=== PATIENT | male | born 1935 | race Caucasian/White ===

== ENCOUNTER 2016-11-15 12:01 | Observation (INO) ==
--- NOTE | 2016-11-15 12:31 | Emergency Department Note ---
Disposition Clinical Impression: JAD (acute kidney injury), Fracture, Anemia, Lactic acid acidosis, Nausea vomiting and diarrhea Disposition: Admitted As Inpatient Condition: Good Time of Disposition: 15:05 General Adult HPI - General Chief complaint: ED Nausea/Vomiting/Diarrhea Stated complaint: vomiting and ankle injury Time Seen by Provider: 11/15/16 12:16 Source: patient Limitations: no limitations Nursing Notes Reviewed: Yes Vital Signs Reviewed: Yes - History of Present Illness HPI Narrative: Palpation complaining of left lower extremity pain after stepping off a tractor and rolling his ankle. Also complaining of nausea vomiting diarrhea that began overnight. Subjective fevers as chills. Denies any abdominal pain. States that this has stopped around 4:00 this morning. Denies any hematochezia melena or hematemesis. Pain Scale: 5 - Related Data Home Medications Medication Instructions Recorded Confirmed Allopurinol [Zyloprim 100 MG] 100 mg PO DAILY 11/15/16 11/15/16 Aspirin 81 mg PO DAILY 11/15/16 11/15/16 Carvedilol 12.5 mg PO BID 11/15/16 11/15/16 Clopidogrel [Plavix] 75 mg PO DAILY 11/15/16 11/15/16 Furosemide [Lasix] 40 mg PO DAILY 11/15/16 11/15/16 Levothyroxine [Synthroid] [place] [address]/15/16 11/15/16 Losartan Potassium [Cozaar] 1 mg PO DAILY 11/15/16 11/15/16 Multivitamin [Multivitamins] 1 each PO DAILY 11/15/16 11/15/16 Omeprazole [PriLOSEC] 20 mg PO BIDAC 11/15/16 11/15/16 Pravastatin Sodium [Pravachol] 80 mg PO DAILY 11/15/16 11/15/16 Sertraline [Zoloft] 50 mg PO DAILY 11/15/16 11/15/16 amLODIPine [Norvasc] 10 mg PO DAILY 11/15/16 11/15/16 Allergies Allergy/AdvReac Type Severity Reaction Status Date / Time No Known Allergies Allergy Verified 11/15/16 12:15 All systems ED: reviewed and negative except as stated. Constitutional: Reports: chills. Denies: fever Cardiovascular: Denies: chest pain, palpitations, syncope Respiratory: Denies: cough, dyspnea, wheezes Gastrointestinal: Reports: nausea, vomiting, diarrhea. Denies: abdominal pain, hematemesis, melena, hematochezia Genitourinary: Denies: urgency, dysuria, frequency, hematuria Musculoskeletal: Denies: back pain, neck pain Integumentary: Denies: rash Neurological: Reports: weakness Past Medical History - Past Medical History Attestation: Yes The following information was validated with the patient. Source: patient Medical history: Reports: cancer, coronary artery disease, CVA, hypertension, myocardial infarction, other Psychiatric history: Reports: no psych history - Social History Smoking Status: Former smoker Smokeless Tobacco Status: No Alcohol use: Reports: none Drug use: Reports: none Physical Exam - General Limitations: no limitations General appearance: alert, in no apparent distress - Head Head exam: atraumatic, normocephalic, normal inspection - Eye Eye exam: Present: normal appearance, PERRL, EOMI - ENT ENT exam: normal exam, normal oropharynx, mucous membranes moist - Neck Neck exam: Present: normal inspection, full ROM, trachea midline - Chest Chest inspection: Present: normal inspection, symmetric chest wall rise - Respiratory Respiratory exam: Present: normal lung sounds bilaterally. Absent: respiratory distress - Cardiovascular Cardiovascular exam: Present: regular rate, normal rhythm, normal heart sounds - Abdominal Exam Abdominal exam: Present: soft, Non-Tender, normal bowel sounds, other (Does have palpable mesh in his upper abdomen.). Absent: tenderness, distention, guarding, rebound, rigidity, organomegaly, Canchola's sign, Rovsing's sign, tenderness at McBurney's Point - Extremities Exam Extremities exam: Present: normal inspection, full ROM, normal capillary refill. Absent: tenderness, pedal edema - Expanded Lower Extremity Exam Foot/toe exam: Present: other (Pain to palpation of dorsal medial aspect of left foot. No ecchymosis. Mild edema to medial malleolus) - Back Exam Back exam: Present: normal inspection, full ROM. Absent: tenderness - Neurological Exam Neurological exam: Present: alert, oriented X3 - Psychiatric Psychiatric exam: Present: normal affect, normal mood - Skin Skin exam: Present: warm, dry, intact, normal color Course Course Narrative: Male patient presenting to emergency department complaining of left ankle pain and overnight history of nausea vomiting diarrhea with associated chills. He states that one week ago he stepped off his tractor and rolled his left ankle. He has had pain in his ankle ever since. He has been ambulatory on it however it is still painful. He has used ice and heat help relieve the pain. Patient also complaining of nausea vomiting and diarrhea that started last night after he ate a frozen potpie. Patient states that he then began to vomit several times throughout the night. He denies any hematemesis. However He does have a history of peptic ulcer disease. Patient reports his diarrhea is watery and brown in color. He denies any hematochezia or melena. He states that both of these symptoms. This morning around 4:00. He denies any abdominal pain. States that he did have chills throughout the night and cannot get enough blankets on him however is unable to take his temperature due to his vomiting. At this time he is sitting in a chair at bedside with a blanket wrapped around him. He denies any nausea or vomiting at this time. He denies any abdominal pain. The only pain he can report is the pain in his left ankle. His ankle does have some mild edema to the medial aspect however there is no signs of ecchymosis there is no gross deformity. He has pinpoint tenderness over the dorsal medial aspect of his foot. We will get x-rays of his left ankle and foot in scan patient's abdomen. He is refusing nausea medication at this time. - Reevaluation(s) Reevaluation #1: Patient is anemic, has JAD and increase lactic acid as well as a small avulsion fracture to his left foot. We placed patient in a posterior tibial splint. This was placed by or tech. Pulses were strong prior to and after placement. This is a posterior formed splint held with an Serjio wrap. And will admit patient to hospital. We have given him 1 L of fluids. - Consultations Consultation #1: MILES Castañeda accepted patient in stable condition. Time: 14:06 Vital Signs Temperature 98.2 F 11/15/16 12:12 Pulse Rate 73 11/15/16 12:12 Respiratory Rate 16 11/15/16 12:12 Blood Pressure 111/51 11/15/16 12:12 O2 Sat by Pulse Oximetry 96 11/15/16 12:12 Temperature 98.5 F 11/15/16 19:23 Pulse Rate 68 11/15/16 19:23 Respiratory Rate 14 11/15/16 19:23 Blood Pressure 109/49 11/15/16 19:23 O2 Sat by Pulse Oximetry 94 11/15/16 19:23 Oxygen Delivery Oxygen Delivery Room Air Medical Decision Making - Medical Records Medical records reviewed: Yes I reviewed the patient's medical records. - Lab Data Lab results reviewed: Yes I reviewed the patient's lab results. Result diagrams: 11/15/16 12:43 11/15/16 12:43 Lab Results 11/15/16 11/15/16 11/15/16 Range/Units 12:43 12:43 12:43 WBC 11.0 (4.3-11.1) K/mcL RBC 2.86 L (4.19-5.50) M/mcL Hgb 9.4 L (12.9-16.9) g/dL Hct 27.6 L (37.5-50.1) % MCV 96.5 (83.0-100.0) fL MCH 32.9 (28.0-33.3) pg MCHC 34.1 (31.6-35.5) g/dL RDW 14.4 (11.5-14.5) % Plt Count 108 L (140-400) K/mcL MPV 9.7 (9.4-12.4) fL Immature Gran % 0.6 (0-4) % Seg Neutrophils % 89.9 % Lymphocytes % 5.2 % Monocytes % 4.0 % Eosinophils % 0.2 % Basophils % 0.1 % Neutrophils # 9.9 H (1.6-8.9) K/mcL Lymphocytes # 0.6 (0.6-4.6) K/mcL Monocytes # 0.4 (0.0-1.3) K/mcL Eosinophils # 0.0 (0.0-0.6) K/mcL Basophils # 0.0 (0.0-0.2) K/mcL Sodium 139 (136-145) mEq/L Potassium 4.2 (3.5-4.5) mEq/L Chloride 103 (98-109) mEq/L Carbon Dioxide 24 (19-29) mEq/L BUN 47 H (8-26) mg/dL Creatinine 2.08 H (0.72-1.25) mg/dL Est GFR ( Amer) 38 L (> 60) Est GFR (Non-Af Amer) 31 L (> 60) BUN/Creatinine Ratio 23 (6-26) Glucose 129 H (70-99) mg/dL Calculated Osmolality 302 H (280-300) Lactic Acid 2.5 H (0.5-2.2) mmol/L Calcium 8.2 L (8.6-10.8) mg/dL Total Bilirubin 0.3 (0.2-1.2) mg/dL AST 18 (5-34) Units/L ALT 7 (0-55) Units/L Alkaline Phosphatase 62 (38-126) Units/L Troponin I (0-0.03) ng/mL Serum Total Protein 5.7 L (6.0-8.3) g/dL Albumin 2.9 L (3.5-5.0) g/dL Globulin 2.8 (2.4-3.5) g/dL Albumin/Globulin Ratio 1.0 L (1.1-2.2) Lipase 17 (8-78) Units/L /09/26 Range/Units 12:43 WBC (4.3-11.1) K/mcL RBC (4.19-5.50) M/mcL Hgb (12.9-16.9) g/dL Hct (37.5-50.1) % MCV (83.0-100.0) fL MCH (28.0-33.3) pg MCHC (31.6-35.5) g/dL RDW (11.5-14.5) % Plt Count (140-400) K/mcL MPV (9.4-12.4) fL Immature Gran % (0-4) % Seg Neutrophils % % Lymphocytes % % Monocytes % % Eosinophils % % Basophils % % Neutrophils # (1.6-8.9) K/mcL Lymphocytes # (0.6-4.6) K/mcL Monocytes # (0.0-1.3) K/mcL Eosinophils # (0.0-0.6) K/mcL Basophils # (0.0-0.2) K/mcL Sodium (136-145) mEq/L Potassium (3.5-4.5) mEq/L Chloride (98-109) mEq/L Carbon Dioxide (19-29) mEq/L BUN (8-26) mg/dL Creatinine (0.72-1.25) mg/dL Est GFR ( Amer) (> 60) Est GFR (Non-Af Amer) (> 60) BUN/Creatinine Ratio (6-26) Glucose (70-99) mg/dL Calculated Osmolality (280-300) Lactic Acid (0.5-2.2) mmol/L Calcium (8.6-10.8) mg/dL Total Bilirubin (0.2-1.2) mg/dL AST (5-34) Units/L ALT (0-55) Units/L Alkaline Phosphatase (38-126) Units/L Troponin I 0.03 (0-0.03) ng/mL Serum Total Protein (6.0-8.3) g/dL Albumin (3.5-5.0) g/dL Globulin (2.4-3.5) g/dL Albumin/Globulin Ratio (1.1-2.2) Lipase (8-78) Units/L - Radiology Data Radiology results reviewed: Yes I reviewed the patient's radiology results. Ankle X-Ray 11/15/16 12:32 IMPRESSION: Left ankle: Tiny ossific fragment adjacent to the medial malleolus could represent avulsion injury. Overlying soft tissues are swollen. Left foot: No acute osseous abnormality. D/ / Gustavo Milton MD / Gustavo Milton MD Interpreting Provider: Gustavo Milton MD Foot X-Ray 11/15/16 12:32 IMPRESSION: Left ankle: Tiny ossific fragment adjacent to the medial malleolus could represent avulsion injury. Overlying soft tissues are swollen. Left foot: No acute osseous abnormality. D/ / Gustavo Milton MD / Gustavo Milton MD Interpreting Provider: Gustavo Milton MD Abdomen/Pelvis CT 11/15/16 12:35 IMPRESSION: 1. No acute intra-abdominal abnormality to account for the patient's symptoms. 2. Severe diverticulosis. 3. 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 Severe atherosclerosis. RECOMMENDATIONS: Managing Abdominal Aortic Aneurysms 3.5-3.9 cm: 1 year follow up. Reference: Osorio et al. The care of patients with an abdominal aortic aneurysm: The Society of Vascular Surgery practice guidelines. Journal of Vascular Surgery. Vol 50, Number 85. Hailey et al. Managing Incidental Findings on Abdominal and Pelvic CT and MRI, Part 2: White Paper of the ACR Incidental Findings Committee II on Vascular Findings. J Am Carloz Radiol 2013;10:789-794 D/ / 11/15/2016 13:06:38 Luciana Urena MD / rene Interpreting Provider: Luciana Urena MD - EKG Data EKG #1 EKG attestation: Yes I reviewed and interpreted this EKG. EKG results narrative: Normal sinus rhythm at a rate of 66. UT interval is 175. Respiration is 129. QT is 413. QTC is 427. No signs of acute ischemia. No significant change from previous EKG dated 04/21/2014. Attestation Statement - Attestation Attestation: I examined this patient and my medical decision-making was reviewed with the Resident Physician. I agree with the documented findings, disposition and treatment plan as described except to the extent set forth below. 81-year-old male presenting with concern for vomiting. Subsequently found have acute kidney injury, lactic acidosis. IV hydration initiated. CT scan shows no acute findings. We will proceed with admission to the hospital for IV hydration and further monitoring.
[2016-11-15 12:49] LABS: Basophils % 0.1 %; Eosinophils % 0.2 %; Hematocrit 27.6 % (37.5-50.1); Hemoglobin 9.4 g/dL (12.9-16.9); Immature Granulocytes % 0.6 % (0-4); Lymphocytes % 5.2 %; Mean Corpuscular HGB Conc 34.1 g/dL (31.6-35.5); Mean Corpuscular Hemoglobin 32.9 pg (28.0-33.3); Mean Corpuscular Volume 96.5 fL (83.0-100.0); Mean Platelet Volume 9.7 fL (9.4-12.4); Platelet Count 108 K/mcL (140-400); Red Blood Count 2.86 M/mcL (4.19-5.50); Red Cell Distribution Width 14.4 % (11.5-14.5); Segmented Neutrophils % 89.9 %
[2016-11-15 12:50] LABS: Lymphocytes # 0.6 K/mcL (0.6-4.6); Monocytes # 0.4 K/mcL (0.0-1.3); Neutrophils # 9.9 K/mcL (1.6-8.9)
[2016-11-15 13:04] LABS: Albumin 2.9 g/dL (3.5-5.0); Bilirubin,Total 0.3 mg/dL (0.2-1.2); Calcium 8.2 mg/dL (8.6-10.8); Globulin 2.8 g/dL (2.4-3.5); Potassium 4.2 mEq/L (3.5-4.5); Total Protein 5.7 g/dL (6.0-8.3)
[2016-11-15] MEDS ORDERED: 0.9 % Sodium Chloride 1,000 ML IVC ONE (13:38)
[2016-11-15] MEDS ORDERED: Ondansetron 4 MG/2 ML VIAL IVP PRN (18:12)
[2016-11-15] MEDS ORDERED: *HR* Morphine 2 MG/ML SYRINGE IVP PRN (18:12)
[2016-11-15] MEDS ORDERED: *HR* HYDROcodone/Acet 5/325 mg TABLET PO PRN (18:12)
[2016-11-15] MEDS ORDERED: Naloxone 0.4 MG/ML INJ IVP PRN (18:12)
[2016-11-15] MEDS ORDERED: Acetaminophen 325 MG TABLET PO PRN (18:12)
--- NOTE | 2016-11-15 18:23 | Event Note ---
Date of Encounter: 11/15/16 Time of Encounter: 18:23 1. Dehydration secondary to Acute gastroenteritis viral versus bacterial as a possible cause of lactic acidosis Continue IV fluids 2. Acute on chronic kidney disease, chronic kidney disease stage III, avoid nephrotoxic agents 3. Left ankle fracture/avulsion fracture , orthopedic surgery consulted 4. Chronic anemia, monitor CBC, no signs of bleeding 5.CAD status post stents, continue aspirin Omeprazole for GI prophylaxis and subcutaneous heparin for DVT prophylaxis. The patient will be admitted for observation. Full code. Time spent on this admission 40 minutes.
--- NOTE | 2016-11-15 18:42 | Internal Med History&Physical ---
<Pradeep Castañeda - Last Filed: 11/15/16 19:10> Date of Encounter: 11/15/16 Time of Encounter: 17:00 Assessment and Plan (1) Gastroenteritis Current visit: Yes Status: Acute Patient presents with acute gastroenteritis over the past day. Patient reports nausea, vomiting, and diarrhea. He states that the nausea and vomiting have resolved, however he still is experiencing diarrhea. Cardiac diet ordered as tolerated. IV fluids ordered. Will monitor patient's I&O. IV Zofran ordered PRN. Follow-up labs ordered to monitor patient's lactic acidosis. (2) Dehydration Current visit: Yes Status: Acute Patient presents with acute dehydration related to recurrent nausea and vomiting over the past 24 hours. Follow-up labs ordered to monitor electrolytes. Will administer IV NS 0.9 at 100 mL/HR. (3) Acute kidney injury superimposed on chronic kidney disease Current visit: Yes Status: Acute Patient presents with JAD on chronic kidney disease. Patient's GFR is 31 on admission. Will use IV fluids judiciously, monitor I&O, and daily weight. Will avoid nephrotoxins. (4) Avulsion fracture of left ankle Current visit: Yes Status: Acute Patient presents with acute avulsion fracture of left ankle as confirmed by XR today. Consult to orthopedic surgery placed. Qualifiers: Encounter type: initial encounter Fracture type: closed Qualified Code(s) : S82.892A - Other fracture of left lower leg, initial encounter for closed fracture (5) Chronic anemia Current visit: Yes Status: Chronic Patient presents with history of chronic anemia. Patient denies any unusual bleeding from bowels or in emesis. Follow-up labs ordered to monitor CBC. Will continue to monitor patient for signs of bleeding. (6) CAD (coronary artery disease) Current visit: Yes Status: Chronic Patient presents with history of chronic CAD. Will continue aspirin therapy as well as patient's pravastatin, Cozaar, Plavix, and carvedilol. Qualifiers: Coronary Disease-Associated Artery/Lesion type: unspecified vessel or lesion type [place] vs. transplanted heart: [place] heart Associated angina: angina presence unspecified Qualified Code(s): I25.10 - Atherosclerotic heart disease of [place] coronary artery without angina pectoris (7) GERD (gastroesophageal reflux disease) Current visit: Yes Status: Chronic Patient presents with history of chronic GERD. IVP Protonix 40 mg daily ordered. IV Zofran ordered PRN for nausea. Qualifiers: Esophagitis presence: esophagitis presence not specified Qualified Code(s) : K21.9 - Gastro-esophageal reflux disease without esophagitis (8) DVT prophylaxis Current visit: Yes Status: Acute Patient is to be placed on DVT prophylaxis due to current admission status and bed rest status. Heparin 5,000 units SQ Q8 ordered. Internal Medicine - H&P: HPI Chief complaint: Nausea/Vomiting/Diarrhea Admitted From: Emergency Dept Plans for Post Hospital Care: Home History of present illness: Mr. Scruggs is a 81 year old male presents from the ED with chief complaint of nausea, vomiting, diarrhea since last evening. He also reports having fever and chills with the nausea and vomiting. He denies any blood in the vomit or diarrhea. While in the ED, patient told the physician about rolling his ankle several days ago and how it was painful. 3-View XR of the left foot in the ED showed swollen overlying soft tissues and possible avulsion fracture. Orthopedic consult ordered in the ED. Patient reports that the nausea and vomiting were subsiding but he was still having diarrhea. Patient's medical history includes cancer, CAD, CVA many years ago, HTN, VA several years ago with placement of 4 stents. Patient is at moderate risk for further morbidity based on his resolving symptoms and will be placed as observation status for dehydration resulting from gastroenteritis which could contribute to his lactic acidosis. Patient to receive IV NS 0.9 100 mL/HR, cardiac diet, and will be placed as falls precautions due to foot injury. Time spent with patient > 40 minutes. Past Med Surg Social Fam HX - Past Medical History Source: patient Medical history: cancer, coronary artery disease, CVA, hypertension, myocardial infarction, other Psychiatric history: no psych history - Past Surgical History Surgical History: angioplasty/stent - Social History Smoking Status: Former smoker Packs per day: Reports quitting 35 years ago Smokeless Tobacco Status: No Alcohol use: none Drug use: none Occupational status: previously employed Current living situation: Home, With Family Activity Level: Independent ambulation Recent Out of Country Travel Within the Last 8 Weeks: No Exposure or Possible Exposure to Illness During Travel: No - Family History Father Race: Family Member Ethnicity: Non- Living Status: Age at : 53 Cause of : Upper respiratory infection Hx Family Respiratory Disorders: Yes (Chronic URIs) Mother Race: Family Member Ethnicity: Non- Living Status: Age at : 78 Cause of : VA Hx Family Cardiac Disorders: Yes (CHF, HD, VA, HTN) Brother Race: Family Member Ethnicity: Non- Living Status: Still Living Hx Family Cardiac Disorders: Yes (HD) Sister Race: Family Member Ethnicity: Non- Living Status: Age at : 64 Cause of : Complications from DM Hx Family Endocrine Disorder: Yes (DM) Internal Medicine - H&P: Meds Allopurinol [Zyloprim 100 MG] 100 mg PO DAILY 11/15/16 [History] Aspirin 81 mg PO DAILY 11/15/16 [History] Carvedilol 12.5 mg PO BID 11/15/16 [History] Clopidogrel [Plavix] 75 mg PO DAILY 11/15/16 [History] Furosemide [Lasix] 40 mg PO DAILY 11/15/16 [History] Levothyroxine [Synthroid] 100 mcg PO 0630 11/15/16 [History] Losartan Potassium [Cozaar] 1 mg PO DAILY 11/15/16 [History] Multivitamin [Multivitamins] 1 each PO DAILY 11/15/16 [History] Omeprazole [PriLOSEC] 20 mg PO BIDAC 11/15/16 [History] Pravastatin Sodium [Pravachol] 80 mg PO DAILY 11/15/16 [History] Sertraline [Zoloft] 50 mg PO DAILY 11/15/16 [History] amLODIPine [Norvasc] 10 mg PO DAILY 11/15/16 [History] Allergies No Known Allergies Allergy (Verified 11/15/16 12:15) All Systems PM: A 10-system review of systems was performed and is negative for pertinent findings except as documented above in the HPI. - Constitutional Constitutional: as per HPI, chills, fever(s), no night sweats - EENT Eyes: no change in vision, no discharge, no pain, no photophobia Ears: no ear discharge, no ear pain, no tinnitus Nose, mouth and throat: no dysphagia, no nasal discharge, no neck pain, no sore throat - Breasts Breasts: as per HPI - Cardiovascular Cardiovascular ROS IM: no chest pain, no diaphoresis, no dyspnea, no lightheadedness, no palpitations, no syncope - Respiratory Respiratory: no cough, no dyspnea, no wheezing, no excessive phlegm production - Gastrointestinal Gastrointestinal: as per HPI, diarrhea, nausea, vomiting - Genitourinary Genitourinary ROS male: as per HPI - Musculoskeletal Musculoskeletal ROS IM: no numbness, no tingling - Integumentary Integumentary IM: no rash, no unusual bruising - Neurological Neurological ROS: no confusion, no convulsions, no focal weakness, no numbness, no tingling, no tremor(s) - Psychiatric Psychiatric: as per HPI - Endocrine Endocrine IM: as per HPI - Hematologic/Lymphatic Hematologic/Lymphatic: no easy bruising - Allergic/Immunologic Allergic/Immunologic: as per HPI - Constitutional Vitals: Temp Pulse Resp BP Pulse Ox 98.0 F 77 16 166/76 96 11/15/16 15:09 11/15/16 15:09 11/15/16 15:11/15/16 15:11/15/16 17:55 General appearance: Present: cooperative, A&O X 3, pleasant, no acute distress, answers questions appropriately - Head Head exam: Present: atraumatic, normocephalic - Eye Eye exam: Present: PERRL, conjuntiva pink, sclera anicteric Pupils: Present: PERRL - ENT ENT exam: Present: normal exam, normal external ear exam - Neck Neck exam general surgery: Present: supple, trachea midline. Absent: lymphadenopathy - Respiratory Respiratory exam: Present: CTAB. Absent: accessory muscle use, rales, rhonchi, wheezes - Cardiovascular Cardiovascular exam: Present: RRR, +S1, +S2. Absent: diastolic murmur, gallop, rubs, systolic murmur - GI/Abdominal GI/Abdominal exam: Present: normal bowel sounds, soft, no peritoneal signs. Absent: distended, tenderness - Rectal Rectal exam: Present: deferred - Additional comments: exam deferred. - Extremities Exam Extremities exam: Present: warm, radial pulses palpable and symetrical. Absent : calf tenderness, cyanotic, pedal edema - Back Exam Back exam: Present: normal inspection - Neurological Exam Neurological exam: Present: CN II-XII intact, oriented X3, no focal deficits. Absent: pronater drift, facial droop, speech deficit - Psychiatric Psychiatric exam: Present: normal affect, normal mood - Skin Skin exam: Present: dry, intact Internal Med - H&P Results - Labs CBC & Chem 7: 11/15/16 12:43 11/15/16 12:43 Labs: Cardiac Enzymes 11/15/16 Range/Units 14:21 Troponin I 0.03 (0-0.03) ng/mL - Diagnostic Studies Other Images Additional comments: Impressions Ankle X-Ray 11/15/16 12:32 IMPRESSION: Left ankle: Tiny ossific fragment adjacent to the medial malleolus could represent avulsion injury. Overlying soft tissues are swollen. Left foot: No acute osseous abnormality. D/ / Gustavo Milton MD / Gustavo Milton MD Interpreting Provider: Gustaov Milton MD Foot X-Ray 11/15/16 12:32 IMPRESSION: Left ankle: Tiny ossific fragment adjacent to the medial malleolus could represent avulsion injury. Overlying soft tissues are swollen. Left foot: No acute osseous abnormality. D/ / Gustavo Milton MD / Gustavo Milton MD Interpreting Provider: Gustavo Milton MD Reference: Osorio et al. The care of patients with an abdominal aortic aneurysm: The Society of Vascular Surgery practice guidelines. Journal of Vascular Surgery. Vol 50, Number 85. Hailey et al. Managing Incidental Findings on Abdominal and Pelvic CT and MRI, Part 2: White Paper of the ACR Incidental Findings Committee II on Vascular Findings. J Am Carloz Radiol 2013;10:789-794 D/ / 11/15/2016 13:06:38 Luciana Urena MD / rene Interpreting Provider: Luciana Urena MD CT scan - abdomen Additional comments: Impressions Abdomen/Pelvis CT 11/15/16 12:35 IMPRESSION: 1. No acute intra-abdominal abnormality to account for the patient's symptoms. 2. Severe diverticulosis. 3. 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 Severe atherosclerosis. RECOMMENDATIONS: Managing Abdominal Aortic Aneurysms 3.5-3.9 cm: 1 year follow up. Reference: Osorio et al. The care of patients with an abdominal aortic aneurysm: The Society of Vascular Surgery practice guidelines. Journal of Vascular Surgery. Vol 50, Number 85. Hailey et al. Managing Incidental Findings on Abdominal and Pelvic CT and MRI, Part 2: White Paper of the ACR Incidental Findings Committee II on Vascular Findings. J Am Carloz Radiol 2013;10:789-794 D/ / 11/15/2016 13:06:38 Luciana Urena MD / rene Interpreting Provider: Luciana Urena MD <Bertrand Mccartney H - Last Filed: 11/16/16 06:34> Date of Encounter: 11/16/16 Internal Medicine - H&P: HPI History of present illness: Mr. Scruggs is a 81 year old male All Systems PM: A 10-system review of systems was performed and is negative for pertinent findings except as documented above in the HPI. - Constitutional Vitals: Temp Pulse Resp BP Pulse Ox 97.8 F 70 14 129/63 98 11/16/16 03:40 11/16/16 03:40 11/16/16 03:40 11/16/16 03:40 11/16/16 03:40 Internal Med - H&P Results - Labs CBC & Chem 7: 11/16/16 01:51 11/16/16 01:51 Labs: Short CBC 11/16/16 Range/Units 01:51 WBC 7.4 (4.3-11.1) K/mcL Hgb 8.4 L (12.9-16.9) g/dL Hct 25.8 L (37.5-50.1) % Plt Count 109 L (140-400) K/mcL Neutrophils # 5.0 (1.6-8.9) K/mcL BMP 11/16/16 01:51 Sodium 138 Potassium 4.0 Chloride 107 Carbon Dioxide 25 BUN 44 H Creatinine 1.87 H Glucose 114 H Calcium 7.6 L Cardiac Enzymes 11/15/16 Range/Units 14:21 Troponin I 0.03 (0-0.03) ng/mL - Attending Attestation 1. Dehydration secondary to Acute gastroenteritis viral versus bacterial as a possible cause of lactic acidosis Continue IV fluids 2. Acute on chronic kidney disease, chronic kidney disease stage III, avoid nephrotoxic agents 3. Left ankle fracture/avulsion fracture , orthopedic surgery consulted 4. Chronic anemia, monitor CBC, no signs of bleeding 5.CAD status post stents, continue aspirin Omeprazole for GI prophylaxis and subcutaneous heparin for DVT prophylaxis. The patient will be admitted for observation. Full code. Time spent on this admission 40 minutes. For this encounter, I have reviewed the FRONT OFFICE DEVELOPER or PA documentation, treatment plan, and medical decision making; and I have had face to face time with this patient.
[2016-11-15] MEDS: Pantoprazole 40 MG VIAL IVP SCH (18:47)
[2016-11-15] MEDS: 0.9 % Sodium Chloride 1,000 ML IVC SCH (18:56)
[2016-11-15] MEDS: *HR* Heparin 5,000 UNIT/ML VIAL SQ SCH (20:42)
[2016-11-16 02:03] LABS: Basophils % 0.1 %; Mean Corpuscular Volume 97.7 fL (83.0-100.0)
[2016-11-16 02:04] LABS: Eosinophils # 0.3 K/mcL (0.0-0.6); Eosinophils % 3.9 %; Hematocrit 25.8 % (37.5-50.1); Hemoglobin 8.4 g/dL (12.9-16.9); Immature Granulocytes % 0.4 % (0-4); Lymphocytes # 1.6 K/mcL (0.6-4.6); Lymphocytes % 21.5 %; Mean Corpuscular HGB Conc 32.6 g/dL (31.6-35.5); Mean Corpuscular Hemoglobin 31.8 pg (28.0-33.3); Monocytes # 0.5 K/mcL (0.0-1.3); Monocytes % 6.9 %; Platelet Count 109 K/mcL (140-400); Red Blood Count 2.64 M/mcL (4.19-5.50); Red Cell Distribution Width 14.5 % (11.5-14.5); Segmented Neutrophils % 67.2 %
[2016-11-16 02:18] LABS: Calcium 7.6 mg/dL (8.6-10.8); Chol/HDL Ratio 3.3 (0-4.9); Magnesium 1.8 mg/dL (1.6-2.6)
[2016-11-16] MEDS: *HR* Heparin 5,000 UNIT/ML VIAL SQ SCH ×2 (05:59→13:29)
[2016-11-16] MEDS: 0.9 % Sodium Chloride 1,000 ML IVC SCH (06:02)
[2016-11-16] MEDS ORDERED: Aspirin 81 MG TAB.CHEW PO SCH (09:00)
[2016-11-16] MEDS ORDERED: Furosemide 20 MG TABLET PO SCH (09:00)
[2016-11-16] MEDS ORDERED: Multivit/Ca/Min/Fe/FA 1 TAB TABLET PO SCH (09:00)
[2016-11-16] MEDS ORDERED: amLODIPine 5 MG TABLET PO SCH (09:00)
[2016-11-16] MEDS: Pantoprazole 40 MG VIAL IVP SCH (09:05)
[2016-11-16 11:11] VITALS: BP 136/67
[2016-11-16 11:45] LABS: Bilirubin,Urine Negative (Negative); Blood,Urine Negative (Negative); Clarity,Urine Clear (Clear); Color,Urine Yellow (Yellow); Glucose,Urine (UA) Normal (Normal); Ketones,Urine Negative (Negative); Leukocyte Esterase,Urine Small (Negative); Nitrite,Urine Negative (Negative); Protein,Urine 30 mg/dL (Neg-Trace); Specific Gravity,Urine 1.016 (1.010-1.025); Urobilinogen,Urine Normal (Normal)
[2016-11-16 11:46] LABS: Bacteria,Urine None Seen per hpf (None-Few); Hyaline Casts,Urine None Seen per lpf (None-Few); RBC,Urine 0-3 per hpf (0-3); Squamous Epithelial Cell,Urine Many per lpf (None-Few)
--- NOTE | 2016-11-16 14:30 | Discharge Summary ---
Date of Encounter: 11/16/16 Time of Encounter: 14:27 - Discharge Diagnosis (1) Dehydration Priority: Secondary Status: Acute (2) Gastroenteritis Priority: Secondary Status: Acute (3) Avulsion fracture of left ankle Priority: Secondary Status: Acute Qualifiers: Encounter type: initial encounter Fracture type: closed Qualified Code(s) : S82.892A - Other fracture of left lower leg, initial encounter for closed fracture (4) GERD (gastroesophageal reflux disease) Priority: Secondary Status: Chronic Qualifiers: Esophagitis presence: esophagitis presence not specified Qualified Code(s) : K21.9 - Gastro-esophageal reflux disease without esophagitis (5) Acute kidney injury superimposed on chronic kidney disease Priority: Primary Status: Acute (6) Chronic kidney disease, stage III (moderate) Priority: Secondary Status: Acute (7) 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 Priority: Secondary Status: Acute Qualifiers: Chronic kidney disease stage: stage 3 (moderate) Qualified Code(s): N18.3 - Chronic kidney disease, stage 3 (moderate); D63.1 - Anemia in chronic kidney disease - Discharge Medications Home Medications: Allopurinol [Zyloprim 100 MG] 100 mg PO DAILY 11/15/16 [History] Aspirin 81 mg PO DAILY 11/15/16 [History] Carvedilol 12.5 mg PO BID 11/15/16 [History] Clopidogrel [Plavix] 75 mg PO DAILY 11/15/16 [History] Furosemide [Lasix] 40 mg PO DAILY 11/15/16 [History] Levothyroxine [Synthroid] 100 mcg PO 0630 11/15/16 [History] Losartan Potassium [Cozaar] 1 mg PO DAILY 11/15/16 [History] Multivitamin [Multivitamins] 1 tab PO DAILY 11/15/16 [History] Omeprazole [PriLOSEC] 20 mg PO BIDAC 11/15/16 [History] Pravastatin Sodium [Pravachol] 80 mg PO DAILY 11/15/16 [History] Sertraline [Zoloft] 50 mg PO DAILY 11/15/16 [History] amLODIPine [Norvasc] 10 mg PO DAILY 11/15/16 [History] Acetaminophen [Tylenol] 650 mg PO Q6H PRN tab 11/16/16 [Rx] Allergies/Adverse Reactions: Allergies No Known Allergies Allergy (Verified 11/15/16 12:15) Date of admission: 11/15/16 14:07 Primary care physician: James Mckeon Consults: 11/15/16 22:54 Consult to Orthopedic Surgery [CONS] Routine Consulting Provider: Orthopedic and Sports Medicine Reason for Consult: avulsion fracture Call Completed: No - Patient Status Disposition: Home, Self-Care Condition: Good Functional capacity at discharge: uses cane/walker Overall status at discharge: patient is progressing back to baseline - Discharge Instructions Follow Up With: Murphy Grace MD [Primary Care Provider] - George Hammer MD [Partnered Physician] - Additional Instructions: Please call [place] in follow-up within 1 week of discharge. Follow-up with PCP in 2 weeks after discharge. - Diet and Activity Activity: increase activity as tolerated Diet: advance to your usual diet, low fat, low cholesterol, low salt diet Hospital course: Mr. Scruggs is a 81 year old male with past medical history significant for hypertension, coronary artery disease, chronic renal insufficiency, who presented to the hospital with nausea vomiting and diarrhea. He states symptoms started after he ate a previously frozen potpie. His symptoms improved. He was found to have lactic acidosis and worsening creatinine. He was admitted to the medical service and treated with IV fluids. Creatinine is improved today and is close to his baseline of 1.8. He was advised to follow- up with his PCP and with [facility]. She was also evaluated in the emergency department for ankle pain and injury which he sustained a week ago. He was diagnosed with an avulsion fracture of the left ankle and his left foot was immobilized in a splint. Orthopedic surgeon as well as consulted from the ER and they recommended outpatient follow-up. At this point he does not require an inpatient evaluation by orthopedics and was advised to follow up outpatient. He has been able to eat a regular diet and was able to ambulate with a crutch. His pain is well controlled and will be discharged home. - Time Spent with Patient Total time spent providing and/or coordinating discharge services: Less than 30 minutes - Constitutional Vitals: Temp Pulse Resp BP Pulse Ox 97.7 F 59 16 136/67 95 11/16/16 10:59 11/16/16 10:59 11/16/16 10:59 11/16/16 10:59 11/16/16 10:59 General appearance: Present: cooperative, A&O X 3, pleasant, no acute distress, answers questions appropriately - Respiratory Respiratory exam: Present: CTAB. Absent: accessory muscle use, rales, rhonchi, wheezes - Cardiovascular Cardiovascular exam: Present: RRR, +S1, +S2. Absent: diastolic murmur, gallop, rubs, systolic murmur - GI/Abdominal GI/Abdominal exam: Present: normal bowel sounds, soft, no peritoneal signs. Absent: distended, tenderness
--- NOTE | 2016-11-16 15:23 | Electrocardiograph Report ---
[address] [place] [address] Test Date: 2016-11-15 Pat Name: Pradeep Scruggs Department: [id number] Room: 3A Gender: M Fur Feeder: : [id number] Requested By: Marcy Quezada Order Number: [id number] Reading MD: Fred Roberson MD Measurements Intervals [place] Rate: 66 P: 75 ID: [id number] QRS: 40 QRSD: 129 T: 82 QT: 413 QTc: 427 Interpretive Statements SINUS RHYTHM INFERIOR MYOCARDIAL INFARCTION, PROBABLY OLD WITH POSTERIOR EXTENSION LATERAL ISCHEMIA Electronically Signed On 11-16-2016 8:14:35 EDT by Fred Roberson MD
== END 2016-11-16 15:44 | disposition home or self-care (01) ==
LOC: EMEROO 12:01 → 3ANU 12:01 → SUATTDRO 14:07 → 3ANU 14:31
PROVIDERS: ADMIT Nurse Practitioner Family; ATTEND Internal Medicine

== ENCOUNTER 2019-06-16 13:33 | Observation (INO) ==
[2019-06-16] MEDS ORDERED: Ampicillin/Sulbactam 3,000 MG in 0.9 % Sodium Chloride Mini Bag 100 ML IVPB ONE (14:54)
[2019-06-16] MEDS ORDERED: Isovue-370 500 ML BOTTLE IVP ONE (14:58)
[2019-06-16 15:42] LABS: Hematocrit 25.5 % (37.5-50.1); Hemoglobin 7.9 g/dL (12.9-16.9); Mean Corpuscular Hemoglobin 28.6 pg (28.0-33.3); Mean Corpuscular Volume 92.4 fL (83.0-100.0); Mean Platelet Volume 10.4 fL (9.4-12.4); Platelet Count 117 K/mcL (140-400); Red Blood Count 2.76 M/mcL (4.19-5.50); Red Cell Distribution Width 17.6 % (11.5-14.5); White Blood Count 4.3 K/mcL (4.3-11.1)
[2019-06-16 16:01] LABS: Potassium 4.6 mEq/L (3.5-5.1)
[2019-06-16] MEDS ORDERED: *HR* HYDROmorphone 2 MG/ML SYRINGE IVP ONE (17:24)
[2019-06-16] MEDS ORDERED: Ondansetron 4 MG/2 ML VIAL IVP ONE (17:25)
[2019-06-16] MEDS ORDERED: Naloxone 0.4 MG/ML INJ IVP PRN (18:23)
[2019-06-16] MEDS ORDERED: *HR* OxyCODONE Immed Rel 5 MG TABLET PO PRN (18:23)
[2019-06-16] MEDS ORDERED: Acetaminophen 325 MG TABLET PO PRN (18:23)
[2019-06-16] MEDS ORDERED: Ondansetron ODT 4 MG TAB.RAPDIS SL PRN (18:23)
[2019-06-16] MEDS: Ampicillin/Sulbactam 1,500 MG in 0.9 % Sodium Chloride Mini Bag 100 ML IVPB SCH (22:16)
[2019-06-17] MEDS: Ampicillin/Sulbactam 1,500 MG in 0.9 % Sodium Chloride Mini Bag 100 ML IVPB SCH ×3 (03:09→18:20)
[2019-06-17 03:56] LABS: Eosinophils # 0.1 K/mcL (0.0-0.6); Eosinophils % 2.2 %; Hematocrit 23.2 % (37.5-50.1); Hemoglobin 7.3 g/dL (12.9-16.9); Immature Granulocytes % 0.2 % (0-4); Lymphocytes # 1.4 K/mcL (0.6-4.6); Lymphocytes % 31.3 %; Mean Corpuscular HGB Conc 31.5 g/dL (31.6-35.5); Mean Corpuscular Hemoglobin 28.6 pg (28.0-33.3); Mean Platelet Volume 10.7 fL (9.4-12.4); Monocytes # 0.4 K/mcL (0.0-1.3); Monocytes % 8.7 %; Neutrophils # 2.7 K/mcL (1.6-8.9); Platelet Count 124 K/mcL (140-400); Red Blood Count 2.55 M/mcL (4.19-5.50); Red Cell Distribution Width 17.7 % (11.5-14.5); Segmented Neutrophils % 57.6 %; White Blood Count 4.6 K/mcL (4.3-11.1)
[2019-06-17 04:14] LABS: Calcium 8.6 mg/dL (8.6-10.3); Potassium 4.8 mEq/L (3.5-5.1)
[2019-06-17] MEDS ORDERED: 0.9 % Sodium Chloride 1,000 ML IVC SCH ×2 (07:45→10:17)
[2019-06-17] MEDS ORDERED: Aspirin 81 MG TAB.CHEW PO SCH (09:00)
[2019-06-17 10:40] LABS: Hematocrit 23.6 % (37.5-50.1); Hemoglobin 7.4 g/dL (12.9-16.9)
[2019-06-17 18:46] VITALS: BP 106/85
== END 2019-06-17 19:30 | disposition home or self-care (01) ==
LOC: EMEROOARM 13:33 → 3BNU 13:33 → SUATTDRO 17:43 → 3BNU 18:15
PROVIDERS: ADMIT Internal Medicine; ATTEND Internal Medicine